=== PATIENT | female | born 1990 | race Caucasian/White ===

== ENCOUNTER 2017-11-25 18:39 | Emergency (ER) | payer OTHER ==
[2017-11-25 19:17] VITALS: BP 120/78
[2017-11-25] MEDS ORDERED: Cephalexin CAP* 500 MG PO ONE (19:56)
--- NOTE | 2017-12-03 14:58 | UC ---
Skin Complaint HPI - HPI Summary HPI Summary: This is an otherwise healthy 27 yo female who presents with c/o swelling and redness around her finger. It has remained unchanged for a couple of weeks now. She notes no pain or drainage. She has been applying mupirocin without improvement. No fevers or streaking. No other nail changes. - History of Current Complaint Chief Complaint: UCUpperExtremity Stated Complaint: FINGER COMPLAINT Hx Last Menstrual Period: 11/22/2017 Pain Intensity: 0 Pain Scale Used: 0-10 Numeric - Allergy/Home Medications Allergies/Adverse Reactions: Allergies Allergy/AdvReac Type Severity Reaction Status Date / Time No Known Allergies Allergy Verified 05/08/16 09:59 Home Medications: Home Medications Dextroamphetamine/Amphetamine [Adderall Xr 20 mg Capsule] 11/25/17 [History] Review of Systems Constitutional: Negative Skin: Other - redness around finger Eyes: Negative ENT: Negative Respiratory: Negative Cardiovascular: Negative Gastrointestinal: Negative Genitourinary: Negative Motor: Negative Neurovascular: Negative Musculoskeletal: Negative Neurological: Negative Psychological: Negative Is Patient Immunocompromised?: No All Other Systems Reviewed And Are Negative: Yes PMH/Surg Hx/FS Hx/Imm Hx Previously Healthy: Yes - Surgical History Surgical History: None - Family History Known Family History: Positive: None - Social History Alcohol Use: Occasionally Substance Use Type: None Smoking Status (MU): Never Smoked Tobacco Physical Exam Triage Information Reviewed: Yes Appearance: Well-Appearing Vital Signs: Initial Vital Signs Temp 98.3 F 11/25/17 19:11 Pulse 61 11/25/17 19:11 Resp 18 11/25/17 19:11 BP 120/78 11/25/17 19:11 Pulse Ox 100 11/25/17 19:11 Vital Signs Reviewed: Yes ENT: Positive: Normal ENT inspection Neck exam: Normal Neck: Positive: Supple Respiratory: Positive: Chest non-tender, Lungs clear, Normal breath sounds. Negative: Crackles, Rhonchi, Wheezing Cardiovascular: Positive: RRR, No Murmur Abdominal Exam: Normal Musculoskeletal: Positive: Strength Intact Neurological Exam: Normal Psychological Exam: Normal Skin: Positive: Other - mild erythema and edema at the proximal nail fold of the R 2nd finger Course/Dx - Course Course Of Treatment: Otherwise healthy female with erythema and edema of the R 2nd nail fold. No drainage or systemic symptoms. Treat for paronychia. She already failed use of topical antibiotics. - Differential Diagnoses - Skin Complaint Differential Diagnoses: Abscess, Contact Dermatitis - Diagnoses Provider Diagnoses: 1. Paronychia Discharge - Sign-Out/Discharge Documenting (check all that apply): Discharge - Discharge Plan Condition: Stable Disposition: HOME Prescriptions: Cephalexin CAP* [Keflex CAP*] 500 mg PO TID #21 cap Patient Education Materials: Paronychia (ED) Referrals: [facility] Anup MENARD [Primary Care Provider] - Additional Instructions: Instructions: 1. Take antibiotic as directed 2. Follow up with [facility] for a referral to dermatology if no improvement after a course of antibiotics 3. Keep your hands moisturized to avoid further infection - Billing Disposition and Condition Condition: STABLE Disposition: HOME
== END 2017-11-25 20:06 | disposition home or self-care (01) ==
LOC: UCEAST 18:39
DX: L03.011 Cellulitis of right finger (principal)
CPT/HCPCS: 99212; A9270-GY; G0463